=== PATIENT | male | born 1960 | race Caucasian/White ===

== ENCOUNTER → 2017-02-07 | Outpatient (CLI) | payer OTHER | LOC: FIMAGING 15:12 | PROVIDERS: ATTEND Internal Medicine | DX: Z01.818 Encounter for other preprocedural examination (principal); G82.50 Quadriplegia, unspecified; Z95.828 Presence of other vascular implants and grafts; Z86.718 Personal history of other venous thrombosis and embolism ==

== ENCOUNTER 2017-08-18 05:41 | Day surgery (SDC) | payer OTHER ==
[2017-08-18] MEDS ORDERED: LR 1,000 ML IV ONE (06:02)
--- NOTE | 2017-08-18 06:43 | PDHPUP ---
History & Physical Update H&P update statement: This history and physical update is based on an assessment of the patient which was completed after admission or registration (within 24 hours), but prior to the surgery/procedure. updated
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
[2017-08-18] MEDS ORDERED: BUPIVACAINE 0.5% 30 ML SDV ONE (07:10)
[2017-08-18] MEDS ORDERED: PROPOFOL/EMULSION 500 MG/50 ML BOTTLE IV ONE (07:24)
[2017-08-18] MEDS ORDERED: fentaNYL 100 MCG/2 ML INJ ONE (07:24)
[2017-08-18] MEDS ORDERED: ROCURONIUM 50 MG/5 ML VIAL ONE (07:26)
[2017-08-18] MEDS ORDERED: LIDOCAINE 2% 100 MG/5 ML SYR ONE (07:28)
[2017-08-18] MEDS ORDERED: LIDOCAINE HCL 160 MG/4 ML LTA KIT TP ONE (07:30)
[2017-08-18] MEDS ORDERED: epHEDrine SULFATE 10 MG/ML SYR ONE ×2 (07:41)
[2017-08-18] MEDS ORDERED: DEXAMETHASONE 4 MG/ML VIAL ONE (07:54)
[2017-08-18] MEDS ORDERED: ONDANSETRON 4 MG/2 ML VIAL ONE (07:55)
[2017-08-18] MEDS ORDERED: HEPARIN 1000 UNIT/1 ML MDV ONE (08:06)
[2017-08-18] MEDS ORDERED: epHEDrine SULFATE 10 MG/ML SYR IVP PRN (08:41)
[2017-08-18] MEDS ORDERED: DEXAMETHASONE 4 MG/ML VIAL IVP PRN (08:41)
[2017-08-18] MEDS ORDERED: ONDANSETRON 4 MG/2 ML VIAL IVP PRN (08:41)
[2017-08-18] MEDS ORDERED: fentaNYL 100 MCG/2 ML INJ IVP PRN (08:41)
[2017-08-18] MEDS ORDERED: ALBUTEROL 3 ML DEYVIAL IH PRN (08:41)
[2017-08-18] MEDS ORDERED: PROMETHAZINE HCL 25 MG/ML INJ IVP PRN (08:41)
[2017-08-18] MEDS ORDERED: NALOXONE HCL 0.4 MG/ML INJ IVP PRN (08:41)
[2017-08-18] MEDS ORDERED: HYDROCODONE/APAP 5/325 TAB PO PRN (08:41)
[2017-08-18] MEDS ORDERED: LR 500 ML IV PRN (08:41)
--- NOTE | 2017-08-18 09:13 | POSTOPPROG ---
Post Op Note Date of Operation: 08/18/17 Surgeon: Luis Fernando Vel[facility] Resident: jose Anesthesiologist: bari Anesthesia: GET(General Endotracheal) Pre-op Diagnosis: acute cholecystitis and stones Post-op Diagnosis: subacute cholecystitis and cholelithiasis Indication: pain Procedure: lap choley Findings: thick gallbladder, large stones Inf/Abcess present in the surg proc area at time of surgery?: Yes Depth: Organ Space EBL: 50-100 Complications: 0 Specimen(s): gallbladder
[2017-08-18 10:46] VITALS: PULSE 83; RESP 16
[2017-08-18 11:34] VITALS: BP 121/86; TEMP 97.5; O2SAT 93
== END 2017-08-18 11:25 | disposition home or self-care (01) ==
LOC: FSGY 05:41
PROVIDERS: ATTEND Surgery
PROC: 0FT44ZZ Resection of Gallbladder, Percutaneous Endoscopic Approach (ICD-10-PCS; principal; 2017-08-18 07:15)
DX: K80.10 Calculus of gallbladder with chronic cholecystitis without obstruction (principal); G82.50 Quadriplegia, unspecified
CPT/HCPCS: J1100; J1956; J2001; J2405; J2704; J3010

== ENCOUNTER 2017-09-08 13:45 | Observation (INO) | payer OTHER ==
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
--- NOTE | 2017-09-08 15:13 | CPEKG ---
Heart Rate: 61 RR Interval: 984 P-R Interval: 168 QRSD Interval: 104 QT Interval: 428 QTC Interval: 431 P Fabens: 64 QRS Fabens: 30 T Wave Fabens: 64 EKG Severity - NORMAL ECG - EKG Impression: SINUS RHYTHM Electronically Signed By: Bereket Ramirez 08-Sep-2017 15:17:45
[2017-09-08 15:47] LABS: PLATELET COUNT 165 10^3/uL (150-400)
[2017-09-08 16:00] LABS: INR 1.04 (0.83-1.16); PROTIME(PATIENT) 13.8 SEC (12.0-15.0)
[2017-09-08] MEDS ORDERED: ERTAPENEM 1 GM VIAL IVP ONE (16:07)
[2017-09-08] MEDS ORDERED: NS 1,000 ML IV ONE (16:09)
[2017-09-08] MEDS ORDERED: ONDANSETRON DISINTEGRATING 4 MG TAB PO PRN (18:00)
[2017-09-08] MEDS ORDERED: ACETAMINOPHEN 325 MG TAB PO PRN ×2 (18:00→18:02)
[2017-09-08] MEDS ORDERED: ONDANSETRON 4 MG/2 ML VIAL IVP PRN (18:00)
[2017-09-08] MEDS ORDERED: ALBUTEROL 3 ML DEYVIAL IH PRN (18:00)
[2017-09-08] MEDS ORDERED: [UNRECOGNIZED DRUG - OTHER] PO PRN (18:02)
[2017-09-08] MEDS ORDERED: OXYCODONE/APAP 5/325 TAB PO PRN (18:02)
[2017-09-08] MEDS ORDERED: ACETAMINOPHEN PO PRN (18:02)
[2017-09-08] MEDS ORDERED: DIAZEPAM 5 MG TAB PO PRN (18:02)
[2017-09-08] MEDS ORDERED: IBUPROFEN 200 MG TAB PO PRN (18:02)
[2017-09-08] MEDS ORDERED: D METHORPHAN PO PRN (18:02)
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
[2017-09-08] MEDS: IPRATROPIUM/ALBUTEROL 3 ML DEYVIAL IH SCH (20:25)
[2017-09-08] MEDS ORDERED: TOLTERODINE TARTRATE 2 MG EXT REL CAP PO SCH (21:00)
[2017-09-08] MEDS: guaiFENesin 600 MG TAB.ER PO SCH (21:02)
[2017-09-09 04:13] LABS: PLATELET COUNT 159 10^3/uL (150-400)
[2017-09-09] MEDS: IPRATROPIUM/ALBUTEROL 3 ML DEYVIAL IH SCH ×2 (05:39→11:41)
[2017-09-09] MEDS ORDERED: ENOXAPARIN 40 MG/0.4 ML SYR SC SCH (09:00)
[2017-09-09] MEDS: guaiFENesin 600 MG TAB.ER PO SCH (10:13)
[2017-09-09 12:21] VITALS: BP 86/51; PULSE 118; RESP 17; TEMP 98; O2SAT 90
--- NOTE | 2017-09-09 13:59 | ASDISCHSUM ---
Discharge Information Plan Status:Home with No Needs Medically Cleared to Leave:09/08/2017 Discharge Date:09/09/2017 01:49 PM CM D/C Disposition:Home, Routine, Self-Care ADT D/C Disposition:Home, Routine, Self-Care Projected Discharge Date:09/09/2017 01:49 PM Transportation at D/C:Family Discharge Delay Reason: Follow-Up Date:09/09/2017 01:49 PM Discharge Slot: Final Diagnosis: Placement Information Patient Contact Information Contact Name:GENNA Relationship: Address:[address] [place] [address] City:[place] Alternate Phone: State/Zip Code:[place] [address] Email: Financial Information Financial Class:[employer] Primary Plan Desc:[facility] [place] [facility] Primary Plan Number:[id number] Secondary Plan Desc:MEDICARE INPATIENT Secondary Plan Number:[id number] Assessment Information LACE LACE Acuity / Level of Care Answers: Was the patient admitted to hospital via the emergency department? Yes: Emergency dept visits in Answers: 1 last 6 months Score: 4 Date Signed: 09/08/2017 04:40 PM Electronically Signed By:Dahlia Peterson RN Case Management Discharge Plan Note Case Management Discharge Discharge Order Complete? Answers: Yes Patient to Obtain Answers: via Family Medications Transportation Arranged Answers: Family/Friends Family Notified Answers: Yes Notes: in room Discharge Comments Notes: 09/09/2017 Case Management Note Pt has private caregiver and for ADL's. to transport home and pt raphael resume services from agency. Intervention Information
--- NOTE | 2017-09-09 15:07 | GDS ---
[f rep st] DISCHARGE SUMMARY DISCHARGE DIAGNOSES: 1. Upper respiratory infection, likely viral. 2. History of quadriplegia. HOSPITAL COURSE BY PROBLEM: 1. Upper respiratory infection and cough: This is a 57-year-old male with history of C3-C4 quadripl egia, who presented to the hospital with cough and shortness of breath. In the Emergency Department, he was initially started on ertapenem. Prior to coming to the hospital, he had been on Levaquin and not been improving. 2. Procalcitonin blood test was done on presentation that was negative at 0.03, making the likelihoo d of a bacterial infection very low. He was treated with nebulizer treatments and Mucinex. On the d ay of discharge, he states he feels much better and would like to leave the hospital. PHYSICAL EXAM: VITAL SIGNS: On day of discharge, blood pressure 131/87, pulse of 85, respiratory ra te 19, O2 saturation 93% on room air, temperature afebrile. GENERAL: No acute distress. LUNGS: Cl ear. There are no wheezes or rales. Normal respiratory effort. LABORATORY DATA: Respiratory PCR panel was done and was negative for organisms. DISCHARGE MEDICATIONS: Please refer to discharge medication reconciliation in [facility] for details. Below is a preliminary list. New medications on hospital discharge: Albuterol nebulizer 3 mL q.2 hours p.r.n. wheezing. Mucinex 1,200 mg p.o. b.i.d. should be continued. All other home medications are continued as usual home dos ages. DISCHARGE INSTRUCTIONS: The patient will be discharged home. He was instructed to seek medical atte ntion if his breathing worsens or if he develops a fever. If he continues to have cough or any signs of wheezing, he may benefit from a burst of prednisone or possibly Singulair to treat a postinfectio us cough. /[id number]/MODL
== END 2017-09-09 13:49 | disposition home or self-care (01) ==
LOC: INTOOBSV 16:21 → F2W 18:07
PROVIDERS: ADMIT Internal Medicine; ATTEND Family Medicine
PROC: 3E0337Z Introduction of Electrolytic and Water Balance Substance into Peripheral Vein, Percutaneous Approach (ICD-10-PCS; principal; 2017-09-08)
DX: J06.9 Acute upper respiratory infection, unspecified (principal); E86.9 Volume depletion, unspecified; G82.50 Quadriplegia, unspecified; Z86.718 Personal history of other venous thrombosis and embolism; Z96.0 Presence of urogenital implants; Z98.890 Other specified postprocedural states
CPT/HCPCS: 71020; 93005; 96361; 96374; 99285; G0378; J1335; J1650

== ENCOUNTER → 2018-04-10 | Outpatient (CLI) | payer OTHER | LOC: FIMAGING 10:48 | PROVIDERS: ATTEND Internal Medicine | DX: R50.9 Fever, unspecified (principal); Z96.0 Presence of urogenital implants ==

== ENCOUNTER → 2019-01-21 | Outpatient (CLI) | payer OTHER | LOC: FIMAGING 12:55 | DX: Z87.442 Personal history of urinary calculi (principal); G82.50 Quadriplegia, unspecified ==